=== PATIENT | female | born 1990 | race Caucasian/White ===

== ENCOUNTER 2016-10-21 09:50 | Outpatient (RCR) | payer OTHER ==
[~2016-10-21 09:50] MED LIST: BACTRIM DS 8001 TAB PO; BIRTH CONTROL PILLS; CEPHALEXIN500 M1 PO; CIPRO 500MG TA500 MG PO; FLAGYL500 MG PO; LORTAB 5/500 501 TAB PO; MOTRIN 600600 MG/TAB; MULTI VITAMINS1 TAB PO; NAPROSYN500 MG PO; NO HOME MEDICATIONS; NORCO 325 MG-51 TAB PO; PHENERGAN 25 TA25 MG PO; PRENATAL1 TA1 PO; SEPTRA DS 8001 TAB PO
== END 2017-01-19 ==
LOC: WSOH
DX: S90.122A Contusion of left lesser toe(s) without damage to nail, initial encounter (principal); Y92.59 Other trade areas as the place of occurrence of the external cause

== ENCOUNTER 2017-05-27 21:19 | Emergency (ER) | payer SELFPAY ==
[~2017-05-27] VITALS: Ht 162.6 cm; Wt 77.3 kg
[2017-05-27 21:26] VITALS: BP 141/76; TEMP 98.4
[2017-05-27 22:19] LABS: PH 5 (5-8); SQUAMOUS EPITHELIAL 20-50 /hpf; URINE APPEARANCE Turbid; URINE BACTERIA Moderate /hpf; URINE BILIRUBIN Negative (NEGATIVE); URINE BLOOD 1+ (NEGATIVE); URINE COLOR Amber; URINE GLUCOSE Negative (NEGATIVE); URINE KETONE Negative (NEGATIVE); URINE UROBILINOGEN Negative (NEGATIVE); URINE WBC 20-50 /hpf
[2017-05-27] MEDS ORDERED: MACROBID 1100 MG/CAP PO (22:24)
[2017-05-27 22:37] VITALS: PULSE 78
== END 2017-05-27 22:37 | disposition home or self-care (01) ==
LOC: COL.ER 21:19
PROVIDERS: Family Medicine
DX: N39.0 Urinary tract infection, site not specified (principal)

== ENCOUNTER 2018-02-05 13:22 | Emergency (ER) | payer SELFPAY ==
[~2018-02-05] VITALS: Ht 162.6 cm; Wt 90.9 kg
[~2018-02-05 13:22] MED LIST changes: +MACROBID 1100 MG/CAP PO
[2018-02-05 13:33] VITALS: BP 159/87; TEMP 98.6
[2018-02-05] MEDS ORDERED: FLONASEALLERGY NS (14:08)
[2018-02-05] MEDS ORDERED: SUDAFED30 MG PO (14:08)
[2018-02-05 14:28] VITALS: PULSE 68
== END 2018-02-05 14:28 | disposition home or self-care (01) ==
LOC: COL.ER 13:22
DX: H69.81 Other specified disorders of Eustachian tube, right ear (principal); J31.0 Chronic rhinitis